=== PATIENT | female | born 1950 | race American Indian/Alaskan Native ===

== ENCOUNTER 2017-03-13 07:53 | Outpatient (CLI) | payer MEDICARE ==
--- NOTE | 2017-03-13 11:00 | Mammography Report ---
Screening mammogram: Routine views are compared to prior study in January 2015. A grouping of microcalcifications in left breast have been subsequently removed with a marker at that location. There is also a biopsy marker in the right breast which is unchanged. The remainder of the breast pattern is that of intermediate fibroglandular density in a symmetric and unchanged pattern. No currently suspicious findings. CAD used. Impression: Stable breast pattern. Recommendation: Annual mammogram followup. BI-RADS CATEGORY: 1 = Negative ACR BI-RADS MAMMOGRAPHIC CODES: 0 = Needs additional imaging evaluation; 1 = Negative; 2 = Benign; 3 = Probably benign; 4 = Suspicious; 5 = Malignant; 6 = Known biopsy-proven malignancy COMMENT: 1. Dense breast tissue, i.e., adenosis, fibrocystic changes, etc., may obscure an underlying neoplasm. 2. Approximately 10% of cancers are not detected with mammography. 3. A negative mammography report should not delay biopsy if a clinically suspicious mass is present.
== END 2017-03-13 07:54 | disposition home or self-care (01) ==
LOC: MAMMO 07:53
PROVIDERS: ATTEND Internal Medicine
DX: Z12.31 Encounter for screening mammogram for malignant neoplasm of breast (principal)
CPT/HCPCS: 77067; G0202

== ENCOUNTER 2019-03-16 08:54 | Outpatient (CLI) | payer MEDICARE ==
--- NOTE | 2019-03-16 13:14 | Mammography Report ---
BILATERAL DIGITAL SCREENING MAMMOGRAM with CAD: 03/16/19 08:54:00 CLINICAL: Routine screening. COMPARISON:03/13/17 FINDINGS: There are bilateral scattered areas of fibroglandular density.A right biopsy clip at 7 o'clock and a left biopsy clip at 6 o'clock. No mass, architectural distortion or suspicious calcifications. IMPRESSION: No mammographic evidence of malignancy. BI-RADS CATEGORY: 2 -- Benign RECOMMENDATION: Routine mammographic screening in one year. COMMENT: Patient follow-up letters are generated by our [employer] application.
== END 2019-03-16 08:55 | disposition home or self-care (01) ==
LOC: MAMMO 08:54
PROVIDERS: ATTEND Nurse Practitioner Family
DX: Z12.31 Encounter for screening mammogram for malignant neoplasm of breast (principal)
CPT/HCPCS: 77067

== ENCOUNTER 2020-09-22 06:47 | Day surgery (SDC) | payer MEDICARE ==
[2020-09-22 07:39] LABS: Basophils % (Auto) 0.7 % (0.0-1.8); Eosinophils # (Auto) 0.3 K/mm3 (0.0-0.4); Eosinophils % (Auto) 6.1 % (0.0-4.3); Hematocrit 36.8 % (30.3-42.9); Hemoglobin 12.1 gm/dl (10.1-14.3); Lymphocytes # (Auto) 1.1 K/mm3 (1.2-5.4); Lymphocytes % (Auto) 24.2 % (13.4-35.0); Mean Corpuscular HGB Conc 33 % (30-34); Mean Corpuscular Volume 79 fl (79-97); Monocytes # (Auto) 0.7 K/mm3 (0.0-0.8); Monocytes % (Auto) 15.1 % (0.0-7.3); Platelet Count 223 K/mm3 (140-440); Red Blood Count 4.67 M/mm3 (3.65-5.03); Red Cell Distribution Width 12.9 % (13.2-15.2)
[2020-09-22 07:47] LABS: INR 1.09 (0.87-1.13)
[2020-09-22 07:53] LABS: Calcium 9.5 mg/dL (8.4-10.2)
[2020-09-22] MEDS ORDERED: SODIUM CHLORIDE 0.9% 500 ML 500 ML IV SCH (08:00)
[2020-09-22] MEDS ORDERED: HEPARIN 10,000 UNITS/10 ML VIAL ONE (08:13)
[2020-09-22] MEDS ORDERED: HEPARIN/NS 5000 UNIT/500ML 1,000 ML IR ONE (08:13)
[2020-09-22] MEDS ORDERED: VERAPAMIL 5 MG/2 ML INJ ONE (08:14)
[2020-09-22] MEDS ORDERED: NITROGLYCERIN SYRINGE 0 ML ONE (08:14)
[2020-09-22] MEDS ORDERED: LIDOCAINE (2%) 20 MG/1 ML VIAL 20 ML MDV INFILTRATI ONE (08:14)
[2020-09-22] MEDS ORDERED: ASPIRIN EC 325 MG TAB PO SCH (08:30)
[2020-09-22] MEDS ORDERED: POTASSIUM CHLORIDE ER 20 MEQ TAB PO ONE ×2 (08:41→08:45)
[2020-09-22] MEDS: fentaNYL 100 MCG/2 ML INJ ONE ×2 (09:11→09:13)
[2020-09-22] MEDS: MIDAZOLAM 2 MG/2 ML INJ ONE ×2 (09:13→09:14)
--- NOTE | 2020-09-22 10:05 | Cardiac Catherization Report ---
CARDIAC CATHETERIZATION AND ANGIOGRAPHY REPORT INDICATION FOR PROCEDURE: The patient is a 70-year-old -[place] female with history of hypertension, hyperlipidemia with atypical chest pains and negative stress nuclear imaging performed on 01/07/2020. Continues to have atypical chest pains; hence the patient is scheduled for cardiac catheterization for definitive diagnosis and treatment. The patient is aware of the procedure, potential complications and alternatives of therapy available. DESCRIPTION OF PROCEDURE: The patient was brought to the catheterization laboratory in a fasting condition. Right wrist area and forearm were thoroughly cleansed with Betadine solution. The patient was evaluated for moderate sedation and was felt to be appropriate candidate for moderate sedation and received IV Versed and fentanyl. Subsequently, prepared in standard fashion. Local anesthesia was given in the right wrist area and right radial artery puncture was made with 21-gauge arterial puncture needle. A 5-Maori slender sheath was introduced. The patient received 5 mg of intra-arterial verapamil and 3000 units of intravenous heparin. A left ventriculogram was performed using 5-Maori multipurpose catheter, left coronary angiography was performed using JL3.5 catheter and right coronary angiography was performed using a modified JR4 catheter. Difficult to engage coronaries with standard catheters, Otherwise, procedure was uncomplicated. The patient tolerated the procedure well. The patient was monitored throughout the procedure with pulse oximetry, EKG monitoring and hemodynamic monitoring. The patient at the end of the procedure is communicating normally, alert, oriented x 3 and breathing normally. Findings were explained to the patient. The patient's sedation started at 9:11 a.m. and ended at 9:35 a.m. The patient was transferred to the room in stable condition. Following findings were noted. HEMODYNAMICS: 1. Opening aortic pressure 88/46. Left ventricular pressure 86/19. No gradient across the aortic valve. Estimated ejection fraction more than 65%. 2. Left ventriculogram done in OLEARY projection showed normal sized left ventricle with excellent contractility. End-diastolic and systolic volumes were normal. Mitral regurgitation was not evaluated because of limited amount of dye injected. 3. Right coronary artery arises somewhat anteriorly. Angiogram showed dominant right coronary artery with very mild disease in the mid part approaching 20%. Rest of the coronary without significant disease. Left coronary artery arises normally from left coronary cusp. Left main, LAD, which curves around the apex and its branches and circumflex artery and branch are angiographically smooth with only very mild disease noted in the proximal LAD approaching 10-15%. The vessels are tortuous, but no significant coronary artery disease noted. Diffuse mild calcifications noted in the left coronary artery area. FINAL IMPRESSION: 1. Normal sized left ventricle with excellent contractility. Mildly elevated end-diastolic pressure. 2. Very mild coronary artery disease with mild diffuse calcifications. No significant coronary artery disease noted angiographically. The patient tolerated the procedure well. No untoward complications noted. At this time, etiology of chest pain is not clear. We will continue medical therapy and would continue risk factor modification. Findings were discussed with the patient and she understands. JOB# [id number] RONDA/JUSTA FRENCH
--- NOTE | 2020-09-22 12:31 | Short Stay Summary ---
Short Stay Documentation Date of service: 09/22/20 - History H&P: obtained from office - Allergies and Medications Current Medications: Allergies No Known Allergies Allergy (Unverified 06/16/15 07:48) Home Medications Medication Instructions Recorded Confirmed Last Taken Type Nebivolol HCl [Bystolic] 1 tab PO DAILY 09/22/20 09/22/20 09/22/20 History Nitroglycerin [Nitrostat] 0.4 mg SL Q5MIN PRN 09/22/20 09/22/20 Unknown History Pantoprazole [Protonix] 40 mg PO BID 09/22/20 09/22/20 09/21/20 History Rosuvastatin Calcium 40 mg PO DAILY 09/22/20 09/22/20 09/21/20 History Valsartan [Diovan] 320 mg PO QDAY 09/22/20 09/22/20 09/22/20 History amLODIPine [Norvasc] 10 mg PO DAILY 09/22/20 09/22/20 09/21/20 History Active Medications Aspirin (Ecotrin) 325 mg PO ONCE STAN Stop: 09/22/20 14:00 Last Admin: 09/22/20 08:30 Dose: 325 mg Documented by: Sodium Chloride (Nacl 0.9% 500 Ml) 500 mls @ 50 mls/hr IV DIRECT STAN Stop: 09/22/20 17:59 Last Admin: 09/22/20 08:47 Dose: 50 mls/hr Documented by: - Brief post op/procedure progress note Date of procedure: 09/22/20 Pre-op diagnosis: chest pain Post-op diagnosis: other (mild CAD) Procedure: C - see dictated cath report Anesthesia: local Estimated blood loss: none Condition: stable - Disposition Condition at discharge: Good Disposition: DC-01 TO HOME OR SELFCARE - Discharge Diagnoses (1) Mild CAD Status: Chronic Short Stay Discharge Plan Activity: advance as tolerated Diet: low fat, low cholesterol, low salt Wound: open to air, keep clean and dry, per your surgeon's advice Follow up with: KALEE VARGAS MD [Primary Care Provider] - 7 Days Forms: CardCath PCI D/C Instructions
[2020-09-22 14:41] VITALS: BP 101/55
== END 2020-09-22 14:30 | disposition home or self-care (01) ==
LOC: CATHLABREC 06:47
PROVIDERS: ATTEND Internal Medicine
DX: R07.89 Other chest pain (principal); I25.10 Atherosclerotic heart disease of native coronary artery without angina pectoris; H40.9 Unspecified glaucoma; E78.00 Pure hypercholesterolemia, unspecified; I10 Essential (primary) hypertension; Z79.899 Other long term (current) drug therapy; Z98.890 Other specified postprocedural states
CPT/HCPCS: 80048; 85025; 85610; 93005; 93458; 99156; 99157; C1887; C1894; J1644; J2250; J3010; J7040; Q9967

== ENCOUNTER 2021-08-09 13:28 | Outpatient (CLI) | payer MEDICARE ==
--- NOTE | 2021-08-10 07:26 | Mammography Report ---
DIGITAL SCREENING MAMMOGRAM WITH CAD, 08/09/2021 CLINICAL INFORMATION / INDICATION: Routine screening TECHNIQUE: Digital bilateral 2D mammography was obtained in the craniocaudal and mediolateral obliqu e projections. This examination was interpreted with the benefit of Computer-Aided Detection analysis . COMPARISON: 03/16/2019 FINDINGS: Breast Density: There are scattered areas of fibroglandular density. No dominant mass, suspicious calcifications, or architectural distortion in either breast. Bilateral biopsy changes are again seen. IMPRESSION: No mammographic evidence of malignancy. Follow up recommendation: Routine yearly BI-RADS Category 2: Benign. A "normal" or negative report should not discourage follow up or biopsy of a clinically significant f inding. A written summary of these findings will be mailed to the patient. The patient will be entered into a mammography reporting system which will generate a reminder letter for the patient's next appointmen t at the appropriate interval. The [employer] recommends yearly mammograms starting at age 40 and continuing as l jodie as a woman is in good health. Breast MRI is recommended for women with an approximate 20-25% or greater lifetime risk of breast cancer, including women with a strong family history of breast or ova andrea cancer or who have been treated for Hodgkin's disease. Signer Name: Yong Ma MD Signed: 08/10/2021 7:21 AM Workstation Name: [id number]
== END 2021-08-09 13:29 | disposition home or self-care (01) ==
LOC: MAMMO 13:28
PROVIDERS: ATTEND Internal Medicine
DX: Z12.31 Encounter for screening mammogram for malignant neoplasm of breast (principal); N64.89 Other specified disorders of breast
CPT/HCPCS: 77067

== ENCOUNTER 2022-01-22 10:41 | Outpatient (CLI) | payer MEDICARE ==
--- NOTE | 2022-01-22 13:38 | XRay Report ---
RIGHT FIRST TOE 3 VIEWS INDICATION / CLINICAL INFORMATION: GREAT TOE PAIN,RIGHT M79.674 . Right first toe swelling and pain x1 month. COMPARISON: None available. FINDINGS: BONES and JOINT(S): No acute fracture or subluxation. Mild osteoarthritis seen at the first MTP joint and distally along the toes. No erosions or other significant arthritic changes. SOFT TISSUES: Mild soft tissue edema is seen medially along the first MTP joint. No other significant abnormality. ADDITIONAL FINDINGS: None. IMPRESSION: 1. Mild soft tissue edema along the right first toe as above without other acute findings. 2. Mild osteoarthritis. Signer Name: Master Berman MD Signed: 01/22/2022 1:34 PM Workstation Name: [id number]
== END 2022-01-22 10:42 | disposition home or self-care (01) ==
LOC: XRAY 10:41
PROVIDERS: ATTEND Internal Medicine
DX: M19.071 Primary osteoarthritis, right ankle and foot (principal); M79.89 Other specified soft tissue disorders